=== PATIENT | female | born 1960 | race Caucasian/White ===

== ENCOUNTER 2017-03-07 05:44 | Day surgery (SDC) | payer MEDICAID ==
[2017-03-06 10:40] LABS: HEMATOCRIT 38.4 % (36.0-48.0); HEMOGLOBIN 12.9 g/dL (12-16); MCH 30.6 pg (26.0-34.0); MCHC 33.6 g/dL (31.0-37.0); MEAN PLATELET VOLUME 10.9 fL (7.4-10.4); RBC 4.22 10x6/uL (4.00-5.40); RDW 12.6 % (11.5-14.5); WBC 4.8 10x3/uL (4.8-10.8)
[2017-03-07 08:23] VITALS: BP 130/78; BMI 23.9
[2017-03-07] MEDS ORDERED: DURICEF500 MG PO (10:48)
[2017-03-07] MEDS ORDERED: PERCOCET 5-3251 TAB PO (10:49)
--- NOTE | 2017-03-07 15:43 | NUR ---
1230 IV DC WITH CATHER TIP INTACT
--- NOTE | 2017-03-07 15:52 | OP ---
PATIENT NAME: DAVID MCDONNELL MEDICAL RECORD: [id number] :62 LOCATION:[facility] ADMISSION DATE: SURGEON: JOLANTA DAI DO DATE OF OPERATION: 03/07/2017 PROCEDURE PERFORMED: Bilateral endoscopic carpal tunnel release. PREOPERATIVE DIAGNOSIS: Bilateral carpal tunnel syndrome. POSTOPERATIVE DIAGNOSIS: Bilateral carpal tunnel syndrome. INDICATIONS: Ms. Mcdonnell is a 56-year-old female who had a nerve conduction study that demonstrated severe bilateral carpal tunnel syndrome with motor distal latency of the median nerve of 6.3 on the right and 5.7 on the left. She was referred to my office. After this was done, I did talk with her and asked her if it was waking her up at night. She said it was and she was tired of it, not getting a full night's sleep, tired of it going to sleep when she was driving and talking on the phone as well. She decided she wanted surgery. I told her we could do one at a time, 2 weeks apart, or could do both at the same time due to the fact they are endoscopic. She elected to do them both at the same time. She is understanding of the risks and benefits of procedure including continued numbness due to the compression of the median nerve for so long; however, she showed good pain relief. This has been going on for quite some time years she said. DESCRIPTION OF PROCEDURE: The patient was taken to the operative suite, placed in supine position, given 2 grams Ancef. Both the right and left upper extremities were prepped and draped in sterile fashion. Sterile tourniquets were placed first on the left and a timeout was performed and everyone was in agreement with bilateral carpal tunnels, the antibiotics, and the patient. This was all confirmed. The left one was addressed first. The left arm was exsanguinated with an Esmarch and then the Esmarch was left on due to the fact that the tourniquet not being placed yet. The incision was then made just proximal to the wrist crease and careful dissection was made down to the forearm fascia. Once this was done, the bleeding was encountered and we decided to put a tourniquet on a sterile tourniquet was then placed and the cuff was inflated to 250 mmHg. Then, the dissection was made down to the forearm fascia. The forearm fascia was released at the distal aspect of it and going proximal. Once this was done, the carpal tunnel was entered. Dissection was made down bluntly with a Ragnell after the skin incision made to this point. Then, the dilators were used to dilate the carpal tunnel in order to fit the sheath. The sheath was then entered into the carpal tunnel and the transverse carpal ligament was seen and the only transverse carpal ligament. This was then divided after being probed and grasped with a knife and fat had herniated into the spot as well as muscle belly, indicating good release. The sheath was then withdrawn as well as the camera. The transverse carpal ligament was released under direct visualization. After this was all removed, a Ragnell was used to lift the carpal tunnel and direct visualization with loupe magnification was seen on the transverse carpal ligament and scissors was used to break any remaining fibers that may be holding transverse carpal ligament. Once this was done, under direct visualization, the tourniquet was let down and pressure was held and coagulation of any bleeding vessels was made with the bipolar. Then, the transverse skin incision was closed with a 5-0 Monocryl in inverted interrupted fashion and then 5mL of 0.5% Marcaine were injected around the site. OPERATIVE REPORT [id number] DAVID MCDONNELL Attention was then drawn to the right side. An incision was made just proximal to the wrist crease approximately 1 cm in length. Careful dissection was made with Ragnell's. Before this incision was made, a sterile tourniquet was placed and inflated. On the left side, the tourniquet was up for 9 minutes on the right the tourniquet was inflated and then the incision began. Careful dissection was made down with Ragnell's after the skin incision to the carpal tunnel itself and then carpal tunnel was entered with the Ragnell's. The proximal forearm fascia was released with scissors under direct visualization. Once this was done, again the dilator was used to enter the carpal tunnel in order to fit the sheath. The sheath was entered and once a good view of the transverse carpal ligament was seen with the camera, a rasp was used to clean off the transverse carpal ligament. This was done and then the knife was entered and it was released under direct visualization with the camera following it all the way out. As this was done, fat was seen to herniate as well as muscle belly into the carpal tunnel itself. Then, the sheath and the camera was removed and again the Ragnell was used to lift up the skin and the remaining fibers of the transcarpal ligament were under direct loupe magnification with the scissors. Once this was done, the tourniquet was let down at 12 minutes and pressure was held and Malis was used to coagulate any bleeding vessels. Then, the incision was closed with 5-0 Monocryl in inverted interrupted fashion and then 5 mL of 0.5% Marcaine without epinephrine were injected into the site and then each site was dressed with Adaptic, 4 x 4s, Kerlix, and then Coban was lightly dressed on top of each of the wounds. The patient was awakened and taken to recovery in stable condition. Blood loss was minimal. TRANSINT:[id number] Voice Confirmation ID: [id number] DOCUMENT ID: [id number] JOLANTA DAI DO at 1552 CC: [id number] DICTATION DATE: 03/07/17 1056 DOCTOR OF NURSE ANESTHESIA: 03/07/[address] [facility] 03/07/17 [facility] [address] [place] [address]
== END 2017-03-07 13:00 | disposition home or self-care (01) ==
LOC: D.OPS 05:44 → D.PAN 10:15 → D.OPS 11:20
PROVIDERS: Anesthesiology
DX: G56.03 Carpal tunnel syndrome, bilateral upper limbs (principal); Z01.812 Encounter for preprocedural laboratory examination